=== PATIENT | male | born 1970 | race Caucasian/White ===

== ENCOUNTER → 2017-02-06 13:54 | Outpatient (CLI) | payer OTHER ==
[2013-02-10 14:53] VITALS: BMI 36.6
== END | disposition home or self-care (01) ==
LOC: D.CT 13:54
DX: R59.1 Generalized enlarged lymph nodes (principal)

== ENCOUNTER 2018-02-20 21:12 | Emergency (ER) | payer OTHER ==
[2018-02-20 22:39] LABS: BASOPHILS 0.5 % (0-2); EOSINOPHILS 1.7 % (0-7); HEMATOCRIT 48.9 % (42.0-54.0); HEMOGLOBIN 17.2 g/dL (13.5-17.5); IMMATURE GRANULOCYTES 0.5 % (0-5); LYMPHOCYTES 31.4 % (15-50); MCH 32.5 pg (26.0-34.0); MCHC 35.2 g/dL (31.0-37.0); MCV 92.3 fL (80.0-100.0); MEAN PLATELET VOLUME 11.8 fL (7.4-10.4); MONOCYTES 8.4 % (2-11); NEUTROPHILS 57.5 % (40-80); PLATELET COUNT 176 10x3/uL (130-400); RDW 13.1 % (11.5-14.5)
[2018-02-20 22:53] LABS: ALBUMIN 3.4 g/dL (3.4-5.0); ANION GAP 10.8 mmol/L (8-16); BILIRUBIN - TOTAL 0.58 mg/dL (0.2-1.3); CALCIUM 8.6 mg/dL (8.5-10.1); CARBON DIOXIDE 26.2 mmol/L (21.0-32.0); CREATININE - SERUM 1.4 mg/dL (0.6-1.3); PROTEIN - SERUM 6.9 g/dL (6.4-8.2)
[2018-02-21 00:04] LABS: APPEARANCE CLEAR (CLEAR); BILIRUBIN NEGATIVE (NEGATIVE); COLOR YELLOW (YELLOW); GLUCOSE NEGATIVE (NEGATIVE); KETONE NEGATIVE (NEGATIVE); NITRITE NEGATIVE (NEGATIVE); PROTEIN NEGATIVE (NEGATIVE); SPECIFIC GRAVITY 1.015 (1.005-1.020); UROBILINOGEN NORMAL (NORMAL)
[2018-02-21 00:06] LABS: BACTERIA FEW /hpf (NONE SEEN); EPITHELIAL CELLS 0-5 /hpf (0-5); MUCUS <1+ /lpf (NONE SEEN); RED CELLS - URINE 0-5 /hpf (0-5); WHITE CELLS - URINE 0-5 /hpf (0-5)
== END 2018-02-21 01:04 | disposition home or self-care (01) ==
LOC: D.ER 21:12
PROVIDERS: Emergency Medicine
DX: N41.9 Inflammatory disease of prostate, unspecified (principal); F17.200 Nicotine dependence, unspecified, uncomplicated

== ENCOUNTER 2018-04-11 10:40 | Emergency (ER) | payer OTHER ==
[~2018-04-11] VITALS: Ht 188 cm; Wt 134.1 kg
[2018-04-11 10:44] VITALS: Ht 188 cm; Wt 134.1 kg
[2018-04-11] MEDS ORDERED: FLOMAX0.4 MG PO (10:48)
[2018-04-11] MEDS ORDERED: DEXILANT60 MG PO (10:48)
[2018-04-11] MEDS ORDERED: HYDROCODONE-APA1 TAB PO (10:48)
[2018-04-11 11:26] LABS: BASOPHILS 0.5 % (0-2); HEMATOCRIT 49.2 % (42.0-54.0); HEMOGLOBIN 17.3 g/dL (13.5-17.5); IMMATURE GRANULOCYTES 0.5 % (0-5); LYMPHOCYTES 30.8 % (15-50); MCH 32.7 pg (26.0-34.0); MCHC 35.2 g/dL (31.0-37.0); MEAN PLATELET VOLUME 12.6 fL (7.4-10.4); MONOCYTES 9.9 % (2-11); NEUTROPHILS 57.3 % (40-80); PLATELET COUNT 158 10x3/uL (130-400); RBC 5.29 10x6/uL (4.20-6.10); RDW 12.7 % (11.5-14.5); WBC 12.6 10x3/uL (4.8-10.8)
[2018-04-11 11:47] LABS: ALBUMIN 3.9 g/dL (3.4-5.0); ALKALINE PHOSPHATASE 89 U/L (46-116); ALT (SGPT) 96 U/L (10-68); BILIRUBIN - TOTAL 0.34 mg/dL (0.2-1.3); CALC OSMOLALITY 281 mosm/kg (275-300); CALCIUM 9.3 mg/dL (8.5-10.1); CARBON DIOXIDE 23.5 mmol/L (21.0-32.0); CHLORIDE - SERUM 107 mmol/L (98-107); GLUCOSE 98 mg/dL (74-106); POTASSIUM - SERUM 4.1 mmol/L (3.5-5.1); PROTEIN - SERUM 7.1 g/dL (6.4-8.2); SODIUM 142 mmol/L (136-145); UREA NITROGEN 11 mg/dL (7-18); eGFR NON AFRICAN AMERICAN 85 mL/min (90-120)
[2018-04-11 11:51] LABS: APPEARANCE CLEAR (CLEAR); BILIRUBIN NEGATIVE (NEGATIVE); COLOR YELLOW (YELLOW); GLUCOSE NEGATIVE (NEGATIVE); KETONE NEGATIVE (NEGATIVE); NITRITE NEGATIVE (NEGATIVE); PROTEIN NEGATIVE (NEGATIVE); SPECIFIC GRAVITY 1.015 (1.005-1.020); UROBILINOGEN NORMAL (NORMAL)
[2018-04-11 11:53] LABS: BACTERIA FEW /hpf (NONE SEEN); EPITHELIAL CELLS OCC /hpf (0-5); MUCUS >1+ /lpf (NONE SEEN)
[2018-04-11] MEDS ORDERED: ZOFRAN4 MG PO (13:40)
[2018-04-11] MEDS ORDERED: MACROBID100 MG PO (13:40)
== END 2018-04-11 14:51 | disposition home or self-care (01) ==
LOC: D.ER 10:40
PROVIDERS: Family Medicine
DX: R10.9 Unspecified abdominal pain (principal); T14.8XXA Other injury of unspecified body region, initial encounter; X58.XXXA Exposure to other specified factors, initial encounter; Y93.89 Activity, other specified; Y92.019 Unspecified place in single-family (private) house as the place of occurrence of the external cause; N39.0 Urinary tract infection, site not specified; F17.200 Nicotine dependence, unspecified, uncomplicated

== ENCOUNTER → 2018-05-24 15:39 | Outpatient (CLI) | payer OTHER ==
[2018-04-11 10:44] VITALS: BMI 37.9
[~2018-05-24 15:39] MED LIST: DEXILANT60 MG PO; FLOMAX0.4 MG PO; HYDROCODONE-APA1 TAB PO; MACROBID100 MG PO; ZOFRAN4 MG PO
== END | disposition home or self-care (01) ==
LOC: D.RAD 15:39
DX: N20.0 Calculus of kidney (principal)

== ENCOUNTER 2018-07-11 12:28 | Observation (INO) | payer OTHER ==
[~2018-07-11] VITALS: Ht 188 cm; Wt 129.6 kg
--- NOTE | ~2018-07-11 | OP ---
PATIENT NAME: MABLE MAN JR MEDICAL RECORD: [id number] :70 LOCATION:D. D.2128 ADMISSION DATE:07/11/18 SURGEON: JEANNE CRUZ MD DATE OF OPERATION: 07/13/2018 SURGEON: Jeanne Cruz MD ANESTHESIA: General anesthesia by Milad Chun CRNA DIAGNOSIS: Left distal ureteral stones, cumulative size 10-mm. PROCEDURES: Cystoscopy, left retrograde pyelogram, left ureteroscopy and stone extraction, left ureteral stent insertion, 6-Cymraes x 26 cm with string attached. FINDINGS: Radiolucent stones in the kidney and ureter, three stones stacked up in the distal ureter about 4+4+2 mm in size. BLOOD LOSS: None. CLINICAL HISTORY: This is a 47-year-old male with a previous history of kidney stones. He had CT scan earlier this year, which showed that he had bilateral renal stones up to 4-mm in size. At that time, the patient decided that he was going to try to pass these on his own. About a week ago, he developed acute left flank pain with nausea and vomiting. He finally could not tolerate the pain anymore and he came to the Emergency Room on 07/11/2018. A CT scan of the abdomen and pelvis showed a 10-mm stone in the distal left ureter causing left hydroureteronephrosis. Also, the patient had developed renal failure with a creatinine being elevated to 1.8. He was admitted for pain control and he was placed on the OR list for ureteroscopy and stone extraction. However, due to the heavy caseload of the OR it is only today that we were able to get to his procedure. He is not allergic to any medications. He was given Ancef collection systems administrator to the OR. DESCRIPTION OF PROCEDURE: The patient was given induction of general anesthesia. He was then placed in the dorsal lithotomy position and prepped and draped. A 21-Cymraes cystoscope with 30-degree lens was used for visualization. Penile urethra shows no strictures. Prostatic urethra was nonobstructive. Going into the bladder, he has single ureteral orifices on each side with no bladder tumors. On fluoroscopy, we could not identify any stone at all in the pelvis. Neither could we see any stones in either kidney. Therefore, we proceeded with the retrograde pyelogram. An open-ended ureteral catheter was inserted into the left ureteral orifice and contrast was injected. The contrast went only part way up the distal ureter and then was completely blocked by the stone. The stone is radiolucent. A Glidewire was passed through the lumen of the ureteral catheter and the wire managed to get past the stones up into the renal pelvis. With the wire in place, the ureteral catheter was removed and we inserted a 21-Cymraes x 4 cm ureteral dilation balloon. The ureteral orifice was dilated for a few seconds with 12 atmospheres of pressure and then the balloon was deflated and completely removed. We then switched to the rigid ureteroscope after removing the cystoscope. The Glidewire remained in place. Following the Glidewire, we saw that the patient actually had 3 stones stacked up on each other instead of one large 10-mm stone. Using a 0-tip basket, we pulled out each of the stones in turn. During the course of ureteroscopy, a mucosal flap had been raised and I could not see too much proximal to the stone location. I OPERATIVE REPORT [id number] MABLE MAN JR did manage to get up into the mid ureter and no further stones were seen. At this point, once all 3 stones were removed, the ureteroscope was removed. The Glidewire was placed back into the cystoscope and over the Glidewire we inserted the 6-Cymraes x 26 cm ureteral stent. Once the stent was in correct position, the wire was withdrawn entirely. The distal end of the stent was pushed into the bladder using a pusher. The bladder was emptied through the cystoscope sheath and then the scope was removed. The string on the distal end of stent is maintained. It hangs out of the urethra. We tied the string to itself to make it shorter and then cut it off. The patient will be going home today with pain medications as well as Flomax. I will start him on potassium citrate to alkalinize the urine. He most likely has uric acid stones. I will try to dissolve all of his stones including the ones in the kidneys with potassium citrate. He will require a CT scan in about 2 weeks' time in order to verify that he is stone free before we pull the stent out. TRANSINT:[id number] Voice Confirmation ID: [id number] DOCUMENT ID: [id number] JEANNE CRUZ MD at 1129 CC: [id number] DICTATION DATE: 07/13/18 1437 ARTIST AND REPERTOIRE MANAGER: 07/13/18 1510 DIS IN 07/13/18 [facility] [address] [place], [facility]
[2018-07-11 13:26] LABS: BASOPHILS 0.4 % (0-2); EOSINOPHILS 1.1 % (0-7); HEMATOCRIT 42.8 % (42.0-54.0); HEMOGLOBIN 15.5 g/dL (13.5-17.5); IMMATURE GRANULOCYTES 0.3 % (0-5); LYMPHOCYTES 25.6 % (15-50); MCH 32.6 pg (26.0-34.0); MCHC 36.2 g/dL (31.0-37.0); MCV 90.1 fL (80.0-100.0); MEAN PLATELET VOLUME 12.4 fL (7.4-10.4); MONOCYTES 11.5 % (2-11); NEUTROPHILS 61.1 % (40-80); PLATELET COUNT 153 10x3/uL (130-400); RBC 4.75 10x6/uL (4.20-6.10); RDW 12.7 % (11.5-14.5); WBC 11.4 10x3/uL (4.8-10.8)
[2018-07-11 14:10] LABS: ALBUMIN 3.4 g/dL (3.4-5.0); ANION GAP 11.3 mmol/L (8-16); BILIRUBIN - TOTAL 0.53 mg/dL (0.2-1.3); CALCIUM 8.6 mg/dL (8.5-10.1); CARBON DIOXIDE 26.4 mmol/L (21.0-32.0); CREATININE - SERUM 1.7 mg/dL (0.6-1.3); POTASSIUM - SERUM 3.7 mmol/L (3.5-5.1); PROTEIN - SERUM 6.7 g/dL (6.4-8.2)
[2018-07-11 14:23] LABS: AMORPHOUS SEDIMENT >1+ /lpf (NONE SEEN); APPEARANCE CLEAR (CLEAR); BILIRUBIN NEGATIVE (NEGATIVE); COLOR STRAW (YELLOW); GLUCOSE NEGATIVE (NEGATIVE); KETONE NEGATIVE (NEGATIVE); MUCUS <1+ /lpf (NONE SEEN); NITRITE NEGATIVE (NEGATIVE); PROTEIN NEGATIVE (NEGATIVE); RED CELLS - URINE OCC /hpf (0-5); SPECIFIC GRAVITY 1.015 (1.005-1.020); UROBILINOGEN NORMAL (NORMAL); WHITE CELLS - URINE OCC /hpf (0-5)
[2018-07-11 16:37] VITALS: BP 135/98; BMI 37.9
[2018-07-11 20:58] VITALS: BP 126/74
[2018-07-12] VITALS: BP 117/70
[2018-07-12 05:22] VITALS: BP 142/94
[2018-07-12 06:49] LABS: ANION GAP 11.2 mmol/L (8-16); CALCIUM 7.9 mg/dL (8.5-10.1); CARBON DIOXIDE 24.9 mmol/L (21.0-32.0); CREATININE - SERUM 1.8 mg/dL (0.6-1.3); POTASSIUM - SERUM 4.1 mmol/L (3.5-5.1)
[2018-07-12 07:00] LABS: BASOPHILS 0.4 % (0-2); EOSINOPHILS 0.9 % (0-7); HEMATOCRIT 41.3 % (42.0-54.0); HEMOGLOBIN 14.4 g/dL (13.5-17.5); IMMATURE GRANULOCYTES 0.2 % (0-5); LYMPHOCYTES 18.4 % (15-50); MCHC 34.9 g/dL (31.0-37.0); MCV 91.8 fL (80.0-100.0); MEAN PLATELET VOLUME 12.6 fL (7.4-10.4); NEUTROPHILS 68.1 % (40-80); PLATELET COUNT 149 10x3/uL (130-400); RDW 12.7 % (11.5-14.5); WBC 11.2 10x3/uL (4.8-10.8)
[2018-07-12 08:30] VITALS: BP 129/90
[2018-07-12 09:05] VITALS: Ht 188 cm; Wt 129.6 kg
[2018-07-12 11:51] VITALS: BP 135/98
[2018-07-12 16:06] VITALS: BP 141/93
[2018-07-12 20:00] VITALS: BP 139/85
[2018-07-13 04:59] VITALS: BP 129/73
[2018-07-13 10:01] VITALS: BP 146/92
[2018-07-13 11:36] VITALS: BP 147/108
[2018-07-13 15:27] VITALS: BP 151/89
[2018-07-13 16:00] VITALS: BP 151/89
[2018-07-13] MEDS ORDERED: NORCO 5/325 TAB1 TAB PO (17:14)
[2018-07-13] MEDS ORDERED: FLOMAX0.4 MG PO (17:28)
[2018-07-13] MEDS ORDERED: UROCIT-K10 MEQ PO (17:29)
== END 2018-07-13 19:29 | disposition home or self-care (01) ==
LOC: D.ER 12:28 → D.M2 15:37 → OBSVTIME 16:25 → D.M2 07-13 19:29
PROVIDERS: Family Medicine; Urology
DX: N20.1 Calculus of ureter (principal); N19 Unspecified kidney failure

== ENCOUNTER 2018-09-03 08:10 | Day surgery (SDC) | payer OTHER ==
[~2018-09-03] VITALS: Ht 188 cm; Wt 131.8 kg
--- NOTE | ~2018-09-03 | OP ---
PATIENT NAME: MABLE MAN JR MEDICAL RECORD: [id number] :70 [facility] AD[facility] DATE: SURGEON: JEANNE CRUZ MD DATE OF OPERATION: 09/03/2018 SURGEON: Jeanne Cruz MD ANESTHESIA: General anesthesia by Jenifer Bill CRNA DIAGNOSIS: Obstructive benign prostatic hypertrophy. PROCEDURES: Cystoscopy and UroLift implantation times 5 units used. FINDINGS: A 30 gram prostate on digital rectal examination. Obstructive bilateral lateral lobes, moderate sized median lobe. Single ureteral orifices bilaterally with no bladder tumors. Mildly trabeculated bladder. BLOOD LOSS: None. CLINICAL HISTORY: This is a 48-year-old male, who has difficulty voiding. He has been on Flomax for at least 2 years. Without the Flomax, he cannot void at all. On cystoscopy, he has obstructive bilateral lateral lobes and a degree of median lobe, which is not significantly obstructive. No bladder tumors were seen. His IPSS score is 24 and quality of life is 6. He wished to proceed with the UroLift procedure. He is not allergic to any medications. He was given Ancef 2 grams IV scientific publications editor to the OR. We initially tried with TIVA, but the patient was unable to hold still with TIVA and he was given general anesthetic. DESCRIPTION OF PROCEDURE: He was placed into dorsal lithotomy position and prepped and draped. The UroLift cystoscope was used with 30-degree lens. The penile urethra was nonobstructive. The prostatic urethra and bladder is described as above. Going 1.5-2 cm distal to the bladder neck on the anterior lateral lobe of the prostate, we inserted a UroLift device into each side. Then, we went down to the level of the verumontanum where another pair of UroLift device was inserted on each side. The clip on the UroLift device on the right side came loose and ended up in the bladder. We had to use a fifth UroLift device on the right distal lateral prostate in order to hold this firmly. At the end of the UroLift procedure, the prostatic urethra was nicely opened up. We then removed the cystoscope and placed a regular 21-[place] cystoscope. With grasping forceps, the entire loose clip was removed. The bladder was emptied through the cystoscope and the patient was awakened and brought to the recovery room. I will see him in followup in 2 weeks' time. TRANSINT:[id number] Voice Confirmation ID: [id number] DOCUMENT ID: [id number] JEANNE CRUZ MD at 1228 CC: [id number] DICTATION DATE: 09/03/18 1140 HEALTH COMMUNICATIONS SPECIALIST: 09/03/18 1212 [facility] [address] [place] [address]
[~2018-09-03 08:10] MED LIST changes: +NORCO 5/325 TAB1 TAB PO; +UROCIT-K10 MEQ PO
[2018-09-03 08:30] VITALS: Ht 188 cm; Wt 131.8 kg
== END 2018-09-03 13:15 | disposition home or self-care (01) ==
LOC: D.OPS 08:10
DX: N40.1 Benign prostatic hyperplasia with lower urinary tract symptoms (principal); N13.8 Other obstructive and reflux uropathy

== ENCOUNTER 2018-10-05 14:21 | Emergency (ER) | payer OTHER ==
[~2018-10-05] VITALS: Ht 188 cm; Wt 130.9 kg
[2018-10-05 14:28] VITALS: Ht 188 cm; Wt 130.9 kg
[2018-10-05] MEDS ORDERED: LIPITOR20 MG (14:30)
[2018-10-05] MEDS ORDERED: TORADOL10 MG PO (15:46)
[2018-10-05] MEDS ORDERED: ROBAXIN500 MG PO (15:46)
[2018-10-05 16:17] VITALS: BP 127/83
== END 2018-10-05 16:17 | disposition home or self-care (01) ==
LOC: D.ER 14:21
DX: S80.02XA Contusion of left knee, initial encounter (principal); S80.12XA Contusion of left lower leg, initial encounter; W20.8XXA Other cause of strike by thrown, projected or falling object, initial encounter; Y93.89 Activity, other specified; Y92.89 Other specified places as the place of occurrence of the external cause; S83.422A Sprain of lateral collateral ligament of left knee, initial encounter; I10 Essential (primary) hypertension; F17.200 Nicotine dependence, unspecified, uncomplicated

== ENCOUNTER → 2018-10-24 07:41 | Outpatient (CLI) | payer OTHER ==
[2018-10-05 14:28] VITALS: BMI 37.0
[~2018-10-24 07:41] MED LIST changes: +LIPITOR20 MG; +ROBAXIN500 MG PO; +TORADOL10 MG PO
== END | disposition home or self-care (01) ==
LOC: D.MRI 07:41
DX: M25.562 Pain in left knee (principal)

== ENCOUNTER 2020-04-26 01:02 | Emergency (ER) | payer SELFPAY ==
[~2020-04-26] VITALS: Ht 188 cm; Wt 122.3 kg
[2020-04-26 01:09] VITALS: Ht 188 cm; Wt 122.3 kg
[2020-04-26 02:40] VITALS: BP 132/91
== END 2020-04-26 02:40 | disposition home or self-care (01) ==
LOC: D.ER 01:02
DX: M79.645 Pain in left finger(s) (principal); L03.012 Cellulitis of left finger